=== PATIENT | female | born 1980 | race Caucasian/White ===

== ENCOUNTER → 2016-09-30 | Outpatient (CLI) | payer OTHER ==
[2016-09-30 11:54] LABS: BASO % 0.2 % (0.0-1.0); EOS % 0.7 % (0.0-3.0); LYMPH # 1.5 K/mm3 (1.5-4.5); LYMPH % 22.7 % (24.0-44.0); MEAN CORPUSCULAR HGB CONC 34.2 g/dl (32.0-36.5); MEAN CORPUSCULAR VOLUME 87.9 fl (80.0-96.0); MONO # 0.3 K/mm3 (0.0-0.8); MONO % 4.5 % (0.0-5.0); NEUTROPHILS # 4.4 K/mm3 (1.8-7.7); NEUTROPHILS % 70.9 % (36.0-66.0); RED CELL DISTRIBUTION WIDTH 12.1 % (11.5-14.5); WHITE BLOOD COUNT 6.2 K/mm3 (4.0-10.0)
[2016-09-30 12:28] LABS: FOLATE 19.3 NG/ML; VITAMIN B12 LEVEL 298 PG/ML
[2016-09-30 12:37] LABS: ALBUMIN 3.6 GM/DL (3.2-5.2); ALKALINE PHOSPHATASE 59 U/L (45-117); ALT/SGPT 15 U/L (12-78); ANION GAP 7 MEQ/L (8-16); AST/SGOT 10 U/L (15-37); BILIRUBIN,TOTAL 0.6 MG/DL (0.2-1.0); BLOOD UREA NITROGEN 10 MG/DL (7-18); CALCIUM LEVEL 8.7 MG/DL (8.5-10.1); CARBON DIOXIDE LEVEL 26 MEQ/L (21-32); CHLORIDE LEVEL 107 MEQ/L (98-107); CHOLESTEROL LEVEL 176 MG/DL (<200); CREATININE FOR GFR 0.69 MG/DL (0.55-1.02); FERRITIN 45 NG/ML (8-252); FREE T4 1.03 NG/DL (0.76-1.46); GLOMERULAR FILTRATION RATE > 60.0 (>60); GLUCOSE, FASTING 82 MG/DL (70-105); PERCENT SATURATION 29.6 % (13.2-37.4); SODIUM LEVEL 140 MEQ/L (136-145); TOTAL IRON BINDING CAPACITY 335 UG/DL (250-450); TOTAL PROTEIN 7.2 GM/DL (6.4-8.2); TRIGLYCERIDES LEVEL 93 MG/DL (<150)
== END ==
LOC: M LAB 11:08
PROVIDERS: ATTEND Physician Assistant
DX: Z00.00 Encounter for general adult medical examination without abnormal findings (principal)

== ENCOUNTER 2016-11-16 20:37 | Emergency (ER) | payer OTHER ==
[~2016-11-16] VITALS: Ht 162.6 cm; Wt 82.7 kg
[2016-11-16 20:49] VITALS: BP 136/79
[2016-11-16] MEDS ORDERED: NORCO, ANEXSIA 5/325MG TABLET (HYDROcodone/ACETAMINOPHEN) PO ONE (21:15)
[2016-11-16] MEDS ORDERED: NORCOTAB PO (22:11)
[2016-11-16] MEDS ORDERED: NORCO 5/325MG TABLET (BULK FOR ED) PO ONE (22:15)
--- NOTE | 2016-11-17 07:45 | REP ---
Right hand four views : There is no fracture or dislocation. Mineralization and joint spaces are normal. There are no calcifications or foreign bodies. Impression: Negative right hand . Signed by Burke Forte MD 11/17/2016 07:37 A
--- NOTE | 2016-11-17 07:46 | REP ---
Left ribs and PA chest: Left ribs four views: There is no rib fracture or other rib abnormality. PA chest: There are no comparisons. There is no pneumothorax, hemothorax or pulmonary contusion. Lung reid are clear. Cardiac size is normal. The dev, mediastinum, and bony thorax are unremarkable. Impression: Negative PA chest. Signed by Burke Forte MD 11/17/2016 07:38 A
--- NOTE | 2016-11-17 07:47 | REP ---
Left knee five views : There is no fracture or dislocation. Mineralization and joint spaces are normal. There are no calcifications or foreign bodies. Impression: Negative left knee . Signed by Burke Forte MD 11/17/2016 07:39 A
== END 2016-11-16 22:37 | disposition home or self-care (01) ==
LOC: EDBD 20:37 → M ED 20:37
DX: S66.911A Strain of unspecified muscle, fascia and tendon at wrist and hand level, right hand, initial encounter (principal); S83.92XA Sprain of unspecified site of left knee, initial encounter; S90.01XA Contusion of right ankle, initial encounter; S90.02XA Contusion of left ankle, initial encounter; V29.59XA Motorcycle passenger injured in collision with other motor vehicles in traffic accident, initial encounter; Y92.410 Unspecified street and highway as the place of occurrence of the external cause; Y93.9 Activity, unspecified; Y99.8 Other external cause status; Z88.2 Allergy status to sulfonamides

== ENCOUNTER 2017-05-28 10:53 | Emergency (ER) | payer OTHER | END 2017-05-28 11:58 | disposition home or self-care (01) | LOC: M ED 10:53 | DX: Z04.1 Encounter for examination and observation following transport accident (principal); M62.830 Muscle spasm of back; Z88.2 Allergy status to sulfonamides | CPT/HCPCS: 99282 ==

== ENCOUNTER → 2017-12-18 | Outpatient (REF) | payer OTHER | LOC: M SFHCLERA 18:35 | DX: L02.211 Cutaneous abscess of abdominal wall (principal) ==

== ENCOUNTER 2017-12-21 08:41 | Emergency (ER) | payer OTHER | END 2017-12-21 09:23 | disposition home or self-care (01) | LOC: M ED 08:41 | DX: L02.214 Cutaneous abscess of groin (principal) | CPT/HCPCS: 99282 ==

== ENCOUNTER → 2019-06-01 | Outpatient (REF) | payer OTHER ==
[~2019-06-01] MED LIST: DOXY-350 PO; HYDR-3715 PO; IBUP-1022 PO; ROBA500T PO; TYLE325T5 PO
[2019-06-01 17:23] LABS: INFLUENZA A AMPLIFICATION POSITIVE (NEGATIVE); INFLUENZA B AMPLIFICATION NEGATIVE (NEGATIVE)
== END ==
LOC: M LAB REF 16:37
PROVIDERS: ATTEND Physician Assistant
DX: J11.1 Influenza due to unidentified influenza virus with other respiratory manifestations (principal)

== ENCOUNTER 2020-09-02 16:07 | Emergency (ER) | payer OTHER ==
[~2020-09-02] VITALS: Ht 162.6 cm; Wt 85.6 kg
[2020-09-02] MEDS ORDERED: ANUS2.5C2 TOP (18:03)
[2020-09-02 18:24] VITALS: BP 137/89
== END 2020-09-02 18:25 | disposition home or self-care (01) ==
LOC: M ED 16:07
DX: K64.4 Residual hemorrhoidal skin tags (principal); Z88.2 Allergy status to sulfonamides

== ENCOUNTER → 2021-04-16 | Outpatient (REF) | payer OTHER ==
[~2021-04-16] MED LIST changes: +ANUS2.5C2 TOP
== END ==
LOC: M LAB REF 21:29
PROVIDERS: ATTEND Physician Assistant Medical
DX: R50.9 Fever, unspecified (principal); R05.9 Cough, unspecified

== ENCOUNTER → 2023-03-22 | Outpatient (REF) | payer OTHER ==
[~2023-03-22] MED LIST changes: -DOXY-350 PO; +DOXY-444 PO
== END ==
LOC: M LAB REF 17:31
PROVIDERS: ATTEND Physician Assistant Medical
DX: B34.9 Viral infection, unspecified (principal)

== ENCOUNTER 2024-05-18 10:15 | Emergency (ER) | payer OTHER, SELFPAY ==
[~2024-05-18] VITALS: Ht 162.6 cm; Wt 90.4 kg
[~2024-05-18 10:15] MED LIST changes: +DOXY-440 PO; -DOXY-444 PO
[2024-05-18 10:19] VITALS: BP 150/86; TEMP 98.6; O2SAT 99
[2024-05-18] MEDS ORDERED: AMOX875T2 PO (15:01)
== END 2024-05-18 15:12 | disposition home or self-care (01) ==
LOC: M ED 10:15
DX: K04.7 Periapical abscess without sinus (principal); F17.210 Nicotine dependence, cigarettes, uncomplicated; Z88.2 Allergy status to sulfonamides; Z79.2 Long term (current) use of antibiotics